=== PATIENT | male | born 1970 | race Caucasian/White ===

== ENCOUNTER → 2016-08-14 | Outpatient (CLI) | payer MEDICARE, MEDICAID ==
--- NOTE | 2016-08-15 05:45 | RADIOLOGY REPORT PS360 ---
CT ABD PELVIS W/O CONTRAST CLINICAL INDICATION: HEMATURIA COMPARISON: 08/11/2014 TECHNIQUE: Axial images obtained with sagittal and coronal reformats. PROCEDURE: Oral Contrast: None IV Contrast: None . FINDINGS: No acute finding in the lung bases. The liver, spleen, adrenal glands, gallbladder, and pancreas have an unremarkable unenhanced appearance. There is mild diffuse fatty infiltration of the pancreas which is nonspecific. No renal calculi or hydronephrosis. No obvious renal mass evident on this unenhanced exam. A GLOVE SEWER shunt is present with the tip in the right lower quadrant. No evidence of appendicitis or diverticulitis. No intestinal obstruction or free air. Minimal amount fluid is present in the pelvis nonspecific. No focal inflammatory change. Unremarkable. Urinary bladder has an unremarkable appearance. There has been interval repair of the right inguinal hernia. There is some soft tissue density in the right inguinal region which is likely postsurgical in nature. IMPRESSION: 1. No acute intra-abdominal or pelvic pathology. 2. No hydronephrosis or ureteral calculi. 3. Interval right inguinal hernia repair
--- NOTE | 2016-08-15 05:45 | RADIOLOGY REPORT PS360 ---
CT ABD PELVIS W/O CONTRAST CLINICAL INDICATION: HEMATURIA COMPARISON: 08/11/2014 TECHNIQUE: Axial images obtained with sagittal and coronal reformats. PROCEDURE: Oral Contrast: None IV Contrast: None . FINDINGS: No acute finding in the lung bases. The liver, spleen, adrenal glands, gallbladder, and pancreas have an unremarkable unenhanced appearance. There is mild diffuse fatty infiltration of the pancreas which is nonspecific. No renal calculi or hydronephrosis. No obvious renal mass evident on this unenhanced exam. A PROPERTY COORDINATOR shunt is present with the tip in the right lower quadrant. No evidence of appendicitis or diverticulitis. No intestinal obstruction or free air. Minimal amount fluid is present in the pelvis nonspecific. No focal inflammatory change. Unremarkable. Urinary bladder has an unremarkable appearance. There has been interval repair of the right inguinal hernia. There is some soft tissue density in the right inguinal region which is likely postsurgical in nature. IMPRESSION: 1. No acute intra-abdominal or pelvic pathology. 2. No hydronephrosis or ureteral calculi. 3. Interval right inguinal hernia repair
== END ==
LOC: RAD 11:11
DX: R31.9 Hematuria, unspecified (principal)